=== PATIENT | male | born 2000 | race Caucasian/White ===

== ENCOUNTER 2022-01-27 11:48 | Emergency (ER) | payer OTHER ==
[~2022-01-27] VITALS: Ht 172.7 cm; Wt 85.6 kg
[2022-01-27 13:35] VITALS: BP 137/70
== END 2022-01-27 13:37 | disposition home or self-care (01) ==
LOC: M ED 11:48
DX: S89.92XA Unspecified injury of left lower leg, initial encounter (principal); Y93.02 Activity, running; Y99.1 Military activity